=== PATIENT | male | born 1995 | race Two or more races ===

== ENCOUNTER 2021-12-24 18:34 | Emergency (ER) | payer SELFPAY ==
[~2021-12-24] VITALS: Ht 177.8 cm; Wt 90.7 kg
--- NOTE | 2021-12-24 19:11 | NUR ---
Dr. Douglas at bedside for MSE.
[2021-12-24 19:34] LABS: HEMATOCRIT 50.1 % (36.7-47.1); MEAN CORPUSCULAR HEMOGLOBIN 31.1 uug (23.8-33.4); MEAN CORPUSCULAR VOLUME 89.1 fL (73.0-96.2); PLATELET COUNT (AUTO) 270 K/uL (152-348)
[2021-12-24 19:37] LABS: CREATININE 1.1 mg/dL (0.6-1.3); POTASSIUM 3.9 mmol/L (3.5-5.1)
[2021-12-24 19:50] LABS: BILIRUBIN,DIRECT 0.1 mg/dL (0.0-0.2); BILIRUBIN,TOTAL 0.4 mg/dL (0.2-1.0); TOTAL PROTEIN, SERUM 8.2 g/dL (6.4-8.2)
--- NOTE | 2021-12-24 22:45 | NUR ---
Patient discharged to home in stable condition. Written and verbal after care instructions given. Patient verbalizes understanding of instructions. Stressed follow up or return to ER for worsening s/s. Pt ambulated with steady gait. Denies SOB. Denies chest pain.
[2021-12-24 22:46] VITALS: BP 124/70
== END 2021-12-24 22:48 | disposition home or self-care (01) ==
LOC: ER 18:38
DX: J12.9 Viral pneumonia, unspecified (principal); Z20.822 Contact with and (suspected) exposure to COVID-19; R74.01 Elevation of levels of liver transaminase levels
CPT/HCPCS: 36415; 70030-TC; 71045; 85025; 93005; A4663